=== PATIENT | female | born 1935 | race Caucasian/White ===

== ENCOUNTER 2022-10-24 21:23 | Inpatient (IN) | payer OTHER ==
[~2022-10-24] VITALS: Ht 154.9 cm; Wt 43.1 kg
[~2022-10-24 21:23] MED LIST: ALBU0.099 IH; ASPI81EC98 PO; BENA40TA97 PO; HYDR25TA32 PO; METO-744 PO; NIFE60TE PO; [UNRECOGNIZED DRUG - CODE] PO
[2022-10-24 21:30] VITALS: BP 165/111
[2022-10-24] MEDS ORDERED: NACL 0.9% 1,000 ML IV ONE (21:40)
--- NOTE | 2022-10-24 21:44 | NUR ---
PT BIBA WITH C/O HYPERTENSION AND BACK PAIN. PT ARRIVED FROM HOME. TACHY AFIB RVR NOTED. PT STATES UPPER 6/10 BACK PAIN, PT DENIES CP, SOB, FEVER, OR CHILLS. PT IS AAOX4, NAD, VSS, BREATHING EVEN AND UNLABORED. FAMILY AT BEDSIDE.
[2022-10-24] MEDS ORDERED: METOPROLOL 5 MG/5 ML VIAL IVP ONE (21:45)
--- NOTE | 2022-10-24 22:06 | NUR ---
PT SATING AT 91% RA. PLACED ON 2L O2 NC NOW SATING AT 97%, PT TOLERATING WELL. PT DENIES SOB. NADN. WILL CONTINUE TO MONITOR.
[2022-10-24 22:16] LABS: BASOPHILS % (AUTO) 0.5 % (0.0-2.0); EOSINOPHILS % (AUTO) 0.1 % (0.0-4.0); HEMATOCRIT 37.5 % (36-48); HEMOGLOBIN 12.7 g/dL (12.0-16.0); LYMPHOCYTES # (AUTO) 1.6 K/uL (2.5-16.5); LYMPHOCYTES % (AUTO) 16.1 % (20.5-51.1); MEAN CORPUSCULAR HEMOGLOBIN 32 pg (27-31); MEAN CORPUSCULAR HGB CONC 34 g/dL (33-37); MONOCYTES # (AUTO) 0.8 K/uL (0.8-1.0); MONOCYTES % (AUTO) 7.6 % (1.7-9.3); NEUTROPHILS # (AUTO) 7.4 K/uL (1.8-7.7); NEUTROPHILS % (AUTO) 75.7 % (42.2-75.2); PLATELET COUNT (AUTO) 209 K/uL (140-450); RED BLOOD CELL COUNT(AUTO) 4.04 MIL/uL (4.20-5.40); RED CELL DISTRIBUTION WIDTH 14.3 % (11.6-13.7); WHITE BLOOD COUNT (AUTO) 9.8 K/uL (4.8-10.8)
[2022-10-24 22:45] LABS: ALBUMIN 2.8 g/dL (3.4-5.0); ASPARTATE AMINOTRANSFERASE 111 U/L (15-37); CARBON DIOXIDE 21.1 mmol/L (21-32); CHLORIDE 95 mmol/L (98-107); CREATININE 0.7 mg/dL (0.6-1.3); GLUCOSE 213 mg/dL (74-106); POTASSIUM 4.1 mmol/L (3.5-5.1); SODIUM SERUM 129 mmol/L (136-145); TOTAL BILIRUBIN 0.8 mg/dL (0.0-1.0); UREA NITROGEN, BLOOD 14 mg/dL (7-18)
[2022-10-24] MEDS ORDERED: METOPROLOL 25 MG TAB PO ONE (22:55)
[2022-10-24] MEDS ORDERED: guaiFENesin DM 200/20 MG-10 ML 10 ML UDC PO PRN (23:40)
[2022-10-24] MEDS ORDERED: ONDANSETRON 4 MG/2 ML VIAL IM/IVP PRN (23:40)
[2022-10-24] MEDS ORDERED: ACETAMINOPHEN 325 MG TAB PO PRN (23:40)
[2022-10-24] MEDS ORDERED: POTASSIUM CHLORIDE 10 MEQ TABER PO PRN (23:40)
[2022-10-24] MEDS ORDERED: DOCUSATE SODIUM 100 MG GELCAP PO PRN (23:40)
[2022-10-25] MEDS ORDERED: cefTRIAXone 1,000 MG VIAL ONE (00:04)
[2022-10-25 02:51] LABS: APPEARANCE,URINE SL CLOUDY (CLEAR); BILIRUBIN,URINE NEGATIVE (NEGATIVE); BLOOD, URINE NEGATIVE (NEGATIVE); COLOR,URINE YELLOW (YELLOW); LEUKOCYTE ESTERASE ,URINE TRACE (NEGATIVE); NITRITE, URINE POSITIVE (NEGATIVE); UGLUCOSE NEGATIVE (NEGATIVE)
[2022-10-25 03:01] LABS: RBC,URINE 0-5 /HPF (0-5); YEAST,URINE None Seen /HPF (None Seen)
--- NOTE | 2022-10-25 03:16 | NUR ---
PT REPORT GIVEN TO NICOLASA MORALEZ. ALL CARE ENDORSED AND QUESTIONS ANSWERED.
[2022-10-25 03:58] VITALS: BP 140/88
[2022-10-25 05:20] LABS: HEMATOCRIT 39.4 % (36-48); HEMOGLOBIN 13.5 g/dL (12.0-16.0); MEAN CORPUSCULAR HEMOGLOBIN 32 pg (27-31); MEAN CORPUSCULAR HGB CONC 34 g/dL (33-37); MEAN CORPUSCULAR VOLUME 92.9 fL (80-94); PLATELET COUNT (AUTO) 186 K/uL (140-450); RED BLOOD CELL COUNT(AUTO) 4.24 MIL/uL (4.20-5.40); RED CELL DISTRIBUTION WIDTH 14.3 % (11.6-13.7); WHITE BLOOD COUNT (AUTO) 8.2 K/uL (4.8-10.8)
[2022-10-25 05:31] VITALS: BP 163/120
[2022-10-25 05:36] LABS: ANION GAP 12.8 (8-16); CARBON DIOXIDE 23.2 mmol/L (21-32); CHLORIDE 99 mmol/L (98-107); CREATININE 0.6 mg/dL (0.6-1.3); GLUCOSE 131 mg/dL (74-106); SODIUM SERUM 131 mmol/L (136-145); UREA NITROGEN, BLOOD 11 mg/dL (7-18)
[2022-10-25 05:37] LABS: MAGNESIUM 1.7 mg/dL (1.8-2.4); PHOSPHORUS 2.1 mg/dL (2.5-4.9)
[2022-10-25] MEDS ORDERED: hydrALAZINE 20 MG/ML VIAL IVP PRN (05:45)
[2022-10-25] MEDS: HYDROcodone/APAP 7.5/325 MG 1 TAB PO PRN (05:58)
--- NOTE | 2022-10-25 06:23 | NUR ---
0316- report received from ER nurse Catracho RN on this pt
--- NOTE | 2022-10-25 06:24 | NUR ---
0324- received from ER per maria eugenia , on uncontrolledafin rate of 112 and BP- 124/60 . awake , alert , and oriented times 3. on room air w/o resp distress. Made pt. comfortable in bed and connected to monitors
--- NOTE | 2022-10-25 06:30 | NUR ---
0400-. pt. voided per bedpan
--- NOTE | 2022-10-25 06:31 | NUR ---
0532a- pt HR was upto 143 and BPS>160 and [id number] calledDr Ambati regarding changed in HR aand high BP andordered togive something for back pain first and only start Cardizem drip if its above 140.
[2022-10-25 06:35] LABS: BASOPHILS % (MANUAL) 0 % (0-2); EOSINOPHILS % (MANUAL) 0 % (0-4); LYMPHOCYTES % (MANUAL) 18 % (20-46); MONOCYTES % (MANUAL) 7 % (5-12)
--- NOTE | 2022-10-25 06:35 | NUR ---
0600-photos taken on wounds and bruises
--- NOTE | 2022-10-25 06:53 | NUR ---
0630amCardizem drip was not started because hr is bet 130 to 133
--- NOTE | 2022-10-25 07:15 | NUR ---
RECEIVED PATIENT FROM STORAGE GARAGE MANAGER REGISTRY NURSE NICOLASA MORALEZ. PATIENT IS ABLE TO FOLLOW SIMPLE COMMANDS. PERRL NOTED. SPO2 SATURATION AT 93%. A-FIB ON MONITOR. ABDOMEN IS SOFT WITH ALL ABDOMINAL QUADRANTS ACTIVE. PATIENT CURRENTLY NPO WITH EXCEPTION OF MEDICATION. PATIENT HAS RIGHT FOREARM 20G IV. NO SKIN BREAKDOWN NOTED . STANDARD PRECAUTION WITH HOB 30 DEGREE FOR ASPIRATION PRECAUTION, BED WHEELS LOCKED AND IN LOWEST POSITION.
[2022-10-25] MEDS ORDERED: DILTIAZEM 125 MG/25 ML VIAL IV ONE (07:31)
[2022-10-25] MEDS: DILTIAZEM 125 MG in DEXTROSE 5% 100 ML IV SCH ×2 (07:53→18:27)
[2022-10-25 08:00] VITALS: BP 150/74
[2022-10-25] MEDS ORDERED: MAGNESIUM OXIDE 400 MG TAB PO PRN (08:45)
[2022-10-25] MEDS ORDERED: SODIUM PHOS / POTASSIUM PHOS 1 PKT PDR PO PRN (08:45)
[2022-10-25] MEDS ORDERED: FUROSEMIDE 20 MG/2 ML VIAL IVP ONE (08:50)
--- NOTE | 2022-10-25 09:00 | NUR ---
DR FELDER ROUNDED AT PATIENT BEDSIDE. NEW ORDERS RECEIVED.
[2022-10-25] MEDS: ECOTRIN 81 MG TABEC PO SCH (09:01)
[2022-10-25] MEDS: hydroCHLOROthiazide 25 MG TAB PO SCH (09:01)
[2022-10-25] MEDS: METOPROLOL SUCCINATE 50 MG TABER PO SCH (09:02)
[2022-10-25] MEDS: NIFEdipine 30 MG TABER PO SCH (09:02)
[2022-10-25] MEDS: PANTOPRAZOLE 40 MG TABEC PO SCH (09:03)
[2022-10-25] MEDS: APIXABAN 2.5 MG TAB PO SCH ×2 (09:03→20:13)
[2022-10-25] MEDS ORDERED: ALBUTEROL HFA MDI 90 MCG/ACTUATION 8 GM INH PRN (09:05)
[2022-10-25] MEDS: FUROSEMIDE 20 MG/2 ML VIAL IVP SCH (09:08)
[2022-10-25] MEDS ORDERED: ALBUTEROL 0.083% 2.5 MG/3 ML NEBU INH PRN (09:10)
[2022-10-25 12:00] VITALS: BP 139/99
--- NOTE | 2022-10-25 15:21 | NUR ---
P.T. NOTES P.T. EVAL COMPLETED; REFER TO EVAL FOR DETAILS.
[2022-10-25 16:00] VITALS: BP 105/66
--- NOTE | 2022-10-25 19:28 | NUR ---
ENDORSED PATIENT TO SCRAPER LOADER OPERATOR NURSE NICOLASA LOVE. FOR CONTINUITY OF CARE.
--- NOTE | 2022-10-25 19:30 | NUR ---
RECEIVED REPORT FROM [facility] NURSEANABELLE,RN. RECEIVED PT ON SEMI-SANTANA'S POSITION WITH SIDE RAILS RAISED UP FOR SAFETY. PT IS AWAKE AND ORIENTED X4. ON ROOM AIR WITH SPO2 AT 95%. SINUS BRADYCARDIA NOTED ON ENTERPRISE SYSTEMS ARCHITECT. WITH IV SITE OVER RIGHT FOREARM GAUGE 20 WITH CARDIZEM FLOWING AT 10 MG/HR - FLOWING WELL, INTACT. ON CARDIAC DIET. WITH BRUISE OVER CHEST AREA AND AREAS OF NON-INTACT SKIN (SEE WOUND ASSESSMENT). SAFETY PRECAUTIONS IN PLACE AND MAINTAINED. WILL MONITOR PT CLOSELY. Addendum: 10/26/22 at 0036 by ALEJANDRO GONZALES RN RECEIVED REPORT FROM [facility] NURSEANABELLE,RN. RECEIVED PT ON SEMI-SANTANA'S POSITION WITH SIDE RAILS RAISED UP FOR SAFETY. PT IS AWAKE AND ORIENTED X4. ON ROOM AIR WITH SPO2 AT 95%. ATRIAL FIBRILLATION NOTED ON ENTERPRISE SYSTEMS ARCHITECT- CONTROLLED. WITH IV SITE OVER RIGHT FOREARM GAUGE 20 WITH CARDIZEM FLOWING AT 10 MG/HR - FLOWING WELL, INTACT. ON CARDIAC DIET. WITH BRUISE OVER CHEST AREA AND AREAS OF NON-INTACT SKIN (SEE WOUND ASSESSMENT). SAFETY PRECAUTIONS IN PLACE AND MAINTAINED. WILL MONITOR PT CLOSELY.
[2022-10-25 20:00] VITALS: BP 90/45
[2022-10-25] MEDS: ZOLPIDEM 5 MG TAB PO PRN (23:35)
[2022-10-26] VITALS (7 sets, daily range): BP systolic 85–110; BP diastolic 49–86
[2022-10-26 05:54] LABS: BASOPHILS % (AUTO) 0.3 % (0.0-2.0); EOSINOPHILS % (AUTO) 0.2 % (0.0-4.0); HEMATOCRIT 37.4 % (36-48); HEMOGLOBIN 12.6 g/dL (12.0-16.0); LYMPHOCYTES # (AUTO) 1.4 K/uL (2.5-16.5); LYMPHOCYTES % (AUTO) 16.4 % (20.5-51.1); MEAN CORPUSCULAR HEMOGLOBIN 31 pg (27-31); MEAN CORPUSCULAR HGB CONC 34 g/dL (33-37); MEAN CORPUSCULAR VOLUME 92.3 fL (80-94); MONOCYTES # (AUTO) 0.9 K/uL (0.8-1.0); MONOCYTES % (AUTO) 10.3 % (1.7-9.3); NEUTROPHILS % (AUTO) 72.8 % (42.2-75.2); PLATELET COUNT (AUTO) 213 K/uL (140-450); RED BLOOD CELL COUNT(AUTO) 4.05 MIL/uL (4.20-5.40); WHITE BLOOD COUNT (AUTO) 8.3 K/uL (4.8-10.8)
[2022-10-26 06:19] LABS: ANION GAP 12.9 (8-16); CARBON DIOXIDE 24.3 mmol/L (21-32); CHLORIDE 98 mmol/L (98-107); CREATININE 0.9 mg/dL (0.6-1.3); GLUCOSE 98 mg/dL (74-106); POTASSIUM 4.2 mmol/L (3.5-5.1); SODIUM SERUM 131 mmol/L (136-145); UREA NITROGEN, BLOOD 18 mg/dL (7-18)
[2022-10-26 06:39] LABS: PHOSPHORUS 2.4 mg/dL (2.5-4.9)
--- NOTE | 2022-10-26 07:10 | NUR ---
REPORT GIVEN TO DAYSRIFT NURSE, NICOLASA AHN. ALL QUESTIONS ANSWERED.
--- NOTE | 2022-10-26 07:15 | NUR ---
RECEIVED PATIENT FROM TREATING ENGINEER NURSE NICOLASA LOVE. PATIENT IS ABLE TO FOLLOW SIMPLE COMMANDS. PERRL NOTED. SPO2 SATURATION AT 93%. A-FIB ON MONITOR. ABDOMEN IS SOFT WITH ALL ABDOMINAL QUADRANTS ACTIVE. PATIENT CURRENTLY ON CARDIAC DIET TOLERATED. PATIENT HAS RIGHT FOREARM 20G IV. STANDARD PRECAUTION WITH HOB 30 DEGREE FOR ASPIRATION PRECAUTION, BED WHEELS LOCKED AND IN LOWEST POSITION.
--- NOTE | 2022-10-26 09:01 | NUR ---
PATIENT HAS BEEN SCREENED AND CATEGORIZED HIGH NUTRITION RISK. PATIENT WILL BE SEEN WITHIN 1-2 DAYS OF ADMISSION. 10/26/[address]
[2022-10-26] MEDS: hydroCHLOROthiazide 25 MG TAB PO SCH (09:02)
[2022-10-26] MEDS: METOPROLOL SUCCINATE 50 MG TABER PO SCH (09:02)
[2022-10-26] MEDS: NIFEdipine 30 MG TABER PO SCH (09:02)
[2022-10-26] MEDS: APIXABAN 2.5 MG TAB PO SCH ×2 (09:03→20:46)
[2022-10-26] MEDS: ECOTRIN 81 MG TABEC PO SCH (09:03)
[2022-10-26] MEDS: PANTOPRAZOLE 40 MG TABEC PO SCH (09:03)
[2022-10-26] MEDS: lisinopriL 10 MG TAB PO SCH (09:04)
[2022-10-26] MEDS: FUROSEMIDE 20 MG/2 ML VIAL IVP SCH (09:05)
--- NOTE | 2022-10-26 10:43 | NUR ---
10/26/22 RD INITIAL ASSESSMENT COMPLETED PLEASE REFER TO NUTRITION ASSESSMENT UNDER CARE ACTIVITY FOR ESTIMATED NUTRITIONAL NEEDS. 1. RECOMMEND REGULAR DIET WITH ENSURE BID FOR NUTRITION SUPPORT -WILL PROVIDE ADDITIONAL 700KCAL AND 40G PROTEIN DAILY 2. MONITOR NUTRITION-RELATED LAB VALUES 3. RD TO FOLLOW-UP 7 DAYS, LOW RISK ALEX [address]
--- NOTE | 2022-10-26 15:48 | NUR ---
Received call from Dr. Honeycutt regarding pt.'s heart rate with A-Fib with RVR 125-130. He ordered EKG stat. RT called and they will come now for EKG. Pt. with no acute distress. NO SOB, pt.'s family at bedside. Will cont to monitor closely.
--- NOTE | 2022-10-26 15:58 | NUR ---
Dr. Honeycutt called telephone ordered to give Cardizem 10 mg IVP. If patient has increased heart rate start patient on Cardizem drip. If patient feels chest pain draw stat troponin levels. patient with no acute distress, no SOB. will continue to monitor patient.
--- NOTE | 2022-10-26 15:58 | NUR ---
status update: text messaged Dr. Honeycutt regarding patients increasing heart rate between 120-125.
--- NOTE | 2022-10-26 16:01 | NUR ---
status update: text messaged Dr. Honeycutt the patients EKG results. MD is aware of the situation.
[2022-10-26] MEDS ORDERED: DILTIAZEM 25 MG/5 ML VIAL IVP ONE ×2 (16:03→16:14)
--- NOTE | 2022-10-26 16:12 | NUR ---
Administered Cardizem 10 mg IVP. patients vital signs 110/86, HR 135, RR 20, SpO2 94%. Family is at bedside. pt with no acute distress, no SOB, will continue to monitor patient closely.
--- NOTE | 2022-10-26 16:30 | NUR ---
Dr. ALDANA contacted for cardiology consult for A-FIB RVR. Message sent.
--- NOTE | 2022-10-26 17:06 | NUR ---
status update: Dr. Honeycutt called with new orders. per MD wants metoprolol succinate 25 mg to get discontinued. start metoprolol 25 mg BID. first dose give at 2100.
--- NOTE | 2022-10-26 18:20 | NUR ---
discontinued pt right forearm 20G due to infiltration. Started 20G IV on right upper arm. Pt tolerated IV insertion. Addendum: 10/26/22 at 1854 by MANJEET NEWTON RN right antecubital
--- NOTE | 2022-10-26 18:55 | NUR ---
Pt.'s right forearm IV site with infiltrated with skin swollen and redness at site. Pt. denies any pain. Positive radial pulses. Skin warm to touch. IV site d/c and pressure dressing applied. New IV site started to Right A/C X 1 attempt with no acute distress. Pt. tolerated with no diff. Pt. with no acute distress. Will cont. to monitor.
--- NOTE | 2022-10-26 19:20 | NUR ---
endorsed report to oyster fisherman charge nurse NICOLASA Kent. for continuity of care. patient is left AOx3, stable with no distress noted.
[2022-10-26] MEDS: ZOLPIDEM 5 MG TAB PO PRN (20:42)
[2022-10-26] MEDS: METOPROLOL 25 MG TAB PO SCH (20:42)
--- NOTE | 2022-10-26 22:54 | NUR ---
1944-RECEIVED ENDORSEMENT FROM MARILU CACERES [facility] ICU NURSE
--- NOTE | 2022-10-26 22:55 | NUR ---
1999-ON AFIB AT 113/MIN . 02 A T3L/ NC, O2 SAT 95 % . NO RESP. DISTRESS
--- NOTE | 2022-10-26 23:00 | NUR ---
2100- AMBIEN 5 MG PO GIVEN FOR SLEEP PRN
--- NOTE | 2022-10-26 23:01 | NUR ---
2200- ASLEEP. SIDERAILS UP TIMESX3
[2022-10-27] VITALS: BP 102/74
--- NOTE | 2022-10-27 01:41 | NUR ---
0000-NO EPISODE OF AGITATION AND INCREASE HEAR RATE> 140
[2022-10-27] MEDS: HYDROcodone/APAP 7.5/325 MG 1 TAB PO PRN (02:00)
--- NOTE | 2022-10-27 03:45 | NUR ---
0200- NORCO I TAB GIVEN PO PRN FOR C/O BACK PAIN
--- NOTE | 2022-10-27 03:47 | NUR ---
0200- NORCO 7.5/ 325 MG PO WAS GIVEN FOR BACK PAIN
--- NOTE | 2022-10-27 03:59 | NUR ---
PT IS COMFORTABLY SLEEPING.
[2022-10-27 04:00] VITALS: BP 96/48
--- NOTE | 2022-10-27 04:20 | NUR ---
0400- REMAINS ON AFIB
--- NOTE | 2022-10-27 05:11 | NUR ---
VOIDED PER BEDPAN WITH CLOUDY URINE IN MOD AMT, PARTIAL BED BATH DONE
--- NOTE | 2022-10-27 07:16 | NUR ---
ENDORSED PT TO DAYSHIFT NURSES EMIR RN AND TAMARA RN FOR CONTINUITY OF CARE.
--- NOTE | 2022-10-27 07:30 | NUR ---
Received reposrt from John BALDWIN patient is diagnosed for AFIB WITH RVR pt is alert and oriented x 4 verbally responsive able to move all ext without difficulty NO C/O OF PAIN NO SOB NO CHEST PAIN V/S 98.3 TEMP HR 120S-130S BP 117/80 RESPIRATION 19 O2 SAT ON 2 LPM VIA NC 95O2 SAT PT HAS 2IGHT AC iv ACCESS SAFETY PRECAUTION APPLIED AND CONITUE MONITORING
[2022-10-27 08:00] VITALS: BP 117/80
--- NOTE | 2022-10-27 08:08 | NUR ---
PT. WITH LOW SIM SCALE AT MODERATE TO HIGH RISK, CONTINUE TO FOLLOW PRESSURE INJURY PREVENTION INTERVENTIONS. -POSITIONING: TURN AND REPOSITION PATIENT Q 2H OR SOONER USE PILLOWS TO KEEP BONY PROMINENCES FROM DIRECT CONTACT WITH SURFACES USE REPOSITIONING WEDGES TO PROVIDE 30-DEGREE ANGLE FOR SIDE LYING POSITIONS OFFLOADING OR FOAM DRESSING TO ALL TUBING TO PREVENT MEDICAL DEVICES RELATED PRESSURE INJURY -RE-EVALUATING AND MANAGING INCONTINENCE MONITOR SKIN CONDITION DURING POSITION CHANGE DO NOT MASSAGE REDNESS, BONY PROMINENCES FREQUENT JAE-CARE AND PROVIDE BARRIER CREAMS PRN IF SOILING MOISTURE CONTROL BY OFFER BED PEREZ/URINAL /ABSORBENT PAD TO WICK AND HOLD MOISTURE KEEP SKIN DRY AND PROTECT FROM FRICTION -MANAGE FRICTION/SHEAR/MOBILITY KEEP HOB AT THE LOWEST LEVEL OF ELEVATION NO MORE THAN 30 DEGREE UNLESS OTHERWISE CONTRAINDICATED USE LIFT SHEET OR TRANSFER DEVICE TO MOVE PATIENT AND PREVENT LATERAL SHEER. PROTECT HEELS, ELBOWS BONY PROMINENCES WITH SKIN BERRIES OR FOAM DRESSING IF EXPOSED TO FRICTION OFFLOAD BILATERAL HEELS BY PLACING PILLOWS UNDER CALVES AT ALL TIMES, UNLESS OTHERWISE CONTRAINDICATED -PRESSURE REDISTRIBUTION SURFACE THERAPY DANII ISOFLEX MATTRESS -NUTRITION: PLEASE FOLLOW RD RECOMMENDATIONS AND OFFER NUTRITION SUPPLEMENTS IF ORDERED. PLEASE CONTACT WOUND CARE NURSE FOR ANY QUESTION AND CHANGE OF WOUND CONDITION.
[2022-10-27] MEDS: ECOTRIN 81 MG TABEC PO SCH (08:30)
[2022-10-27] MEDS: METOPROLOL 25 MG TAB PO SCH ×2 (08:30→20:31)
[2022-10-27] MEDS: hydroCHLOROthiazide 25 MG TAB PO SCH (08:30)
[2022-10-27] MEDS: PANTOPRAZOLE 40 MG TABEC PO SCH (08:31)
[2022-10-27] MEDS: lisinopriL 10 MG TAB PO SCH (08:31)
[2022-10-27] MEDS: APIXABAN 2.5 MG TAB PO SCH ×2 (08:32→20:35)
[2022-10-27 09:23] LABS: BASOPHILS % (AUTO) 0.5 % (0.0-2.0); EOSINOPHILS % (AUTO) 0.7 % (0.0-4.0); HEMATOCRIT 38.7 % (36-48); HEMOGLOBIN 13.1 g/dL (12.0-16.0); LYMPHOCYTES # (AUTO) 0.7 K/uL (2.5-16.5); LYMPHOCYTES % (AUTO) 11.6 % (20.5-51.1); MEAN CORPUSCULAR HEMOGLOBIN 31 pg (27-31); MEAN CORPUSCULAR HGB CONC 34 g/dL (33-37); MEAN CORPUSCULAR VOLUME 92.2 fL (80-94); MONOCYTES # (AUTO) 0.5 K/uL (0.8-1.0); NEUTROPHILS # (AUTO) 4.5 K/uL (1.8-7.7); NEUTROPHILS % (AUTO) 79.2 % (42.2-75.2); PLATELET COUNT (AUTO) 233 K/uL (140-450); RED BLOOD CELL COUNT(AUTO) 4.19 MIL/uL (4.20-5.40); WHITE BLOOD COUNT (AUTO) 5.6 K/uL (4.8-10.8)
[2022-10-27 09:54] LABS: ANION GAP 10.2 (8-16); CARBON DIOXIDE 26.6 mmol/L (21-32); CHLORIDE 100 mmol/L (98-107); CREATININE 0.8 mg/dL (0.6-1.3); GLUCOSE 168 mg/dL (74-106); SODIUM SERUM 134 mmol/L (136-145); UREA NITROGEN, BLOOD 20 mg/dL (7-18)
[2022-10-27 09:57] LABS: POTASSIUM 2.8 mmol/L (3.5-5.1)
[2022-10-27 09:59] LABS: PHOSPHORUS 2.1 mg/dL (2.5-4.9)
[2022-10-27 12:00] VITALS: BP 119/80
--- NOTE | 2022-10-27 12:26 | NUR ---
pt has no c/o rajesh and no sob pt needs met, family at bedside meds expalined and questions answered. UZ of the heart was done. K=2.8 resul today with new order placed awaiting pharmacy to deliver.
--- NOTE | 2022-10-27 13:22 | NUR ---
PT. IS ABLE TO TURN AND REPOSITION, FOLLOW DIRECTIONS. RIGHT LOWER LEG ANTERIOR ASPECT, MATURATION PHASE WOUND 2X1X0.2CM WOUND BED, PINK AND DRY, NO ODOR, JAE-WOUND SKIN DRY AND INTACT. PAIN 0/10. BILATERAL HEELS BLANCHABLE REDNESS, HEEL PROTECTORS IN PLACE, WITH PILLOW OFFLOADING. POC DISCUSSED WITH PT. DAUGHTER WHO IS AT BEDSIDE AND PRIMARY RN EMIR. RECOMMENDATIONS: -RLE WOUND APPLY ALGINATE DRESSING AND COVER WITH DRY DRESSING Q3D AND PRN IF SOILING -APPLY HYDRAGUARD TO LIMBS AND TRUNK OF BODY AND HEELS BID AND CARD MOUNTER
[2022-10-27] MEDS ORDERED: POTASSIUM CHLORIDE 40 MEQ, LIDOCAINE 1% 25 MG in NACL 0.9% 250 ML IV SCH (13:30)
--- NOTE | 2022-10-27 14:25 | NUR ---
DC PLANNING AN 87 Y.O.BRIT[place] VIRGIN ISLANDER SPEAKING PATIENT ADMITTED TO ICU FOR MALAISE AND HIGH B/P. SOB AND PALPITATION 2-3 HOURS CHIEF DEPUTY.HX OF A.FIB,ASTHMA AND HIV.ON 2 L NC.ON A.FIB WITH RVR AND WAS STARTED ON CARDIZEM DRIP WHICH WAS OFF NOW AND ON CARDIZEM P.O.PATIENT IS AWAKE, ALERT BUT STILL ON A.FIB WITH HR IN THE 120S-130S.CARDIAC BLOOD ,URINE CX NO GROWTH.NO MRSA ISOLATED.ON CEFTRIAXONE.COVID NEGATIVE.DC PLAN-HOME WHEN PATIENT CONDITION IMPROVES AND PATIENT RESPONDS TO TX.CM TO FOLLOW.. Addendum: 10/27/22 at 1440 by YEHUDA WRIGHT LATE ENTRY- CORRECTION : CARDIAC CX DONE.WAITING FOR TO SEE PATIENT. NO SUCH THING CARDIAC BLOOD.IT'S A TYPO. Addendum: 10/29/22 at 1039 by JENNIFER SYED WENT TO BEDSIDE WITH CASH APPLICATIONS ANALYST KIKI #[id number] ON THE PHONE. WE SPOKE WITH PATIENT AND FAMILY MEMBER AT BEDSIDE REGARDING SNF. PATIENT WAND FAMILY ASKED IF THEY WERE ABLE TO GET CARE AT HOME. SPOKE ON THE DIFFERENCES BETWEEN HOME HEALTH AND A SNF. THEY DECIDED ON HOME HEALTH PT. RECEIVED ORDER FOR HOME HEALTH PT.FAXED ALL PAPERWORK TO [facility] FOR PT Addendum: 10/29/22 at 1332 by JENNIFER SYED CM PATIENT HAD A HOME HEALTH PRIOR TO COMING TO [facility] , ASKED FAMILY IF THEY WOULD LIKE TO CONTINUE WITH THE SAME AGENCY BUT FAMILY DECLINED STATING THE WERE NOT SATISFIED WITH THERE SERVICE AND WOULD LIKE TO PROCEED WITH A DIFFERENT HOME HEALTH AGENCY. GOT A CALL FROM [facility] WHO IS ACCEPTING PATIENT AND WILL BE CONTACTING FAMILY.
--- NOTE | 2022-10-27 14:47 | NUR ---
Automation Machine Operator INTERNAL CORROSION SPECIALIST met with pt., daughter Ksenia Smith, and Granddaughter, Ernestine Reynolds at bedside. Pt. speaks Mexican so Ernestine acted as interpretor for both pt. and pts.mayra. Pt. was alert and oriented and a couple of times answered INTERNAL CORROSION SPECIALIST's questions. Dtr. stated once pt. is stabilized, the goal is to get pt. back home where pt. reside and dtr. resided together in [place]. Dtr. was able to give all pertinent info so INTERNAL CORROSION SPECIALIST can complete a Discharge Planning Assessment. Please see in Intervention. Dtr. requested another granddaughter be added as a secondary emergency contact, Catherine Llamas, . INTERNAL CORROSION SPECIALIST will have this contact added. Pt. was in agreement with Dtr. once she is medically cleared she would like to return to her home. Pt. did not have any questions or concerns at this time. Dtr. stated there were no mental health issues. Addendum: 10/27/22 at 1605 by Isa Seals RN Automation Machine Operator It should be noted that Dtr. Mccormack shared pt.s PCP info. Ksenia confirmed that pts. PCP is an infectious disease doctorYou Infectious Disease [phone] Addendum: 10/27/22 at 1614 by Isa Seals RN Automation Machine Operator ALEJO was able to speak to pts. kevin who resides in [place], Evangelina Tidwell, who stated she does stay in frequent contact with pt./aunt. Evangelina continued to say, pt. was frantic due to the uknow re. her pain meds. Pt. wants to continue to have pain meds, morphine, [place] to manage her pain, but niece said she was sure there was pain, but maybe not as much as the pt. is stating. Bonifacio continued to say once she say pt. with a large bottle of Vicadin, "Like a [employer] bottle of Vitamins, that large" that pt. was using like candy. Kevin also mentioned that the facility, [facility] did not send over the medical directive. INTERNAL CORROSION SPECIALIST can look in the chart to see if there is one. If there is not one listed, as long as pt. is alert and oriented, a new one can be done and signed by Dr. DHILLON transfered the call so niece can speak with pt. Addendum: 10/29/22 at 1012 by Isa Seals RN WRONG PATIENT
[2022-10-27] MEDS ORDERED: ALGINATE ROPE MC SCH (15:00)
--- NOTE | 2022-10-27 15:04 | NUR ---
dR. Varghese CAM IN AND SEE PT FAMILY AT BEDSIDE TALKED WITH MD VERBALIZED UNDERSTANDING ALL QUESTIONS ANSWERED.
[2022-10-27] MEDS ORDERED: DIGOXIN 0.25 MG/ML AMP IV SCH ×2 (15:20→21:00)
[2022-10-27] MEDS ORDERED: MIDAZOLAM 2 MG/2 ML VIAL IV ONE (15:58)
[2022-10-27 16:00] VITALS: BP 138/75
--- NOTE | 2022-10-27 19:22 | NUR ---
RECEIVED REPORT FROM [facility] NURSEEMIRRN. ALL CARES ASSUMED. RECEIVED PT AWAKE AND ORIENTED X4. ON SEMI-SANTANA'S POSITION WITH SIDE RAILS RAISED UP. WITH O2 INHALATION AT 2LM NASAL CANNULA - SPO2 AT 95%. LUNGS CLEAR. AFIB STILL NOTED ON SPEEDBOAT OPERATOR. WITH RIGHT ANTECUBITAL IV ACCESS G20 - FLUSHED AND CAPPED - PATENT AND INTACT. SKIN NON-INTACT - WITH ANTERIOR CHEST BRUISE. RIGHT LEFT WOUND WITH ALGINATE DRESSING-DRY AND INTACT. WITH LEFT LOWER EXTREMITY SCAR. PT NOT IN DISTRESS, NO PAIN AND NO OTHER COMPLAINTS REPORTED. SAFETY PRECAUTIONS IN PLACE. WILL MONITOR PT.
--- NOTE | 2022-10-27 19:22 | NUR ---
ENDORSED PT TO [employer] REPAIR TECHNICIAN patient is diagnosed for AFIB WITH RVR pt is alert and oriented x 4 verbally responsive able to move all ext without difficulty NO C/O OF PAIN NO SOB NO CHEST PAIN V/S HR 120S-130S BP 133/80 RESPIRATION 19 O2 SAT ON 2 LPM VIA NC 95%O2 SAT PT HAS 2IGHT AC IV ACCESS SAFETY PRECAUTION APPLIED SKIN PROBLEM IS RIGHT LOWER EXTREMITY WOUND DRESSING CHNAGE DONE DATED.
--- NOTE | 2022-10-27 19:23 | NUR ---
0 patients lungs sound clear no hhntx needed at this time. patient is off o2 sats 95%. no sob noted at this time. pt is awake and alert
[2022-10-27 20:00] VITALS: BP 133/90
--- NOTE | 2022-10-27 20:35 | NUR ---
LANOXIN IVP GIVEN SLOWLY - WILL MONITOR HR CLOSELY.
[2022-10-27] MEDS: OFLOXACIN 0.3% OP 5 ML BTL RIGHT EYE SCH ×2 (20:59→23:48)
--- NOTE | 2022-10-27 20:59 | NUR ---
OFLOXACIN EYE DROPS STARTED AFTER VERIFYING WITH PHARMACIST.
--- NOTE | 2022-10-27 21:35 | NUR ---
LANOXIN MEDICATION RE-ASSESSMENT DOCUMENTED - BP: 143/85, HR:100.
--- NOTE | 2022-10-27 22:30 | NUR ---
PT IS COMPLAINING OF PEEING A LOT. PUREWICK INSERTED CONSENTED BY PT.
[2022-10-28] VITALS: BP 146/94
[2022-10-28] MEDS: HYDRAGUARD CREAM TP SCH ×2 (00:16→12:55)
[2022-10-28] MEDS: ZOLPIDEM 5 MG TAB PO PRN (00:16)
[2022-10-28] MEDS ORDERED: DIGOXIN 0.25 MG/ML AMP IV SCH (03:00)
[2022-10-28 04:00] VITALS: BP 155/103
[2022-10-28 04:58] LABS: BASOPHILS % (AUTO) 0.7 % (0.0-2.0); EOSINOPHILS # (AUTO) 0.1 K/uL (0-0.4); EOSINOPHILS % (AUTO) 1.1 % (0.0-4.0); HEMATOCRIT 46.2 % (36-48); HEMOGLOBIN 15.8 g/dL (12.0-16.0); LYMPHOCYTES % (AUTO) 17.4 % (20.5-51.1); MEAN CORPUSCULAR HEMOGLOBIN 32 pg (27-31); MEAN CORPUSCULAR HGB CONC 34 g/dL (33-37); MEAN CORPUSCULAR VOLUME 92.3 fL (80-94); MONOCYTES # (AUTO) 0.6 K/uL (0.8-1.0); MONOCYTES % (AUTO) 10.8 % (1.7-9.3); PLATELET COUNT (AUTO) 264 K/uL (140-450); RED BLOOD CELL COUNT(AUTO) 5.01 MIL/uL (4.20-5.40); RED CELL DISTRIBUTION WIDTH 14.1 % (11.6-13.7); WHITE BLOOD COUNT (AUTO) 5.7 K/uL (4.8-10.8)
[2022-10-28] MEDS: METOPROLOL 25 MG TAB PO SCH ×2 (05:08→12:55)
[2022-10-28] MEDS: OFLOXACIN 0.3% OP 5 ML BTL RIGHT EYE SCH ×3 (05:09→18:50)
[2022-10-28 05:23] LABS: ANION GAP 10.3 (8-16); CARBON DIOXIDE 28.8 mmol/L (21-32); CHLORIDE 101 mmol/L (98-107); CREATININE 0.7 mg/dL (0.6-1.3); GLUCOSE 104 mg/dL (74-106); POTASSIUM 4.1 mmol/L (3.5-5.1); SODIUM SERUM 136 mmol/L (136-145); UREA NITROGEN, BLOOD 14 mg/dL (7-18)
[2022-10-28 05:33] LABS: MAGNESIUM 1.8 mg/dL (1.8-2.4); PHOSPHORUS 2.3 mg/dL (2.5-4.9)
--- NOTE | 2022-10-28 06:56 | NUR ---
PT IS SLEEPING COMFORTABLY IN BED AND KEPT WARM WITH LAYERED BLANKETS. MAINTAINED ON O2 INHALATION FOR COMFORT. BP SLIGHTLY ELEVATED. STILL ON AFIB- CONTROLLED WITH HR-80-[address] ON CONTIUOUS SUCTION -1,750ML OF UO COLLECTED THE WHOLE SHIFT WITH 1 EPISODE OF BOWEL MOVEMENT. NO COMPLAINTS OF PAIN THE WHOLE SHIFT. SPONGE BATH GIVEN. NO DISTRESS NOTED. AFEBRILE.
--- NOTE | 2022-10-28 07:04 | NUR ---
REPORT GIVEN TO DAYSGAFT NURSE, NICOLASA AHN. ALL QUESTIONS ANSWERED.
--- NOTE | 2022-10-28 07:25 | NUR ---
Received report from shift leader nurse NICOLASA Lora. Upon assessment patient is only Lao speaking, able to follow simple commands in preferred language. PERRL noted. Upon auscultation no adventitious lung sounds noted, SpO2 95%. Atrial fibrillation on monitor patient is not experiencing any chest pain or SOB at the moment. Patient skin has medial chest bruise, left leg scar open to air, left heel pressure ulcer, right leg pressure ulcer with alginate dressing. Patients abdomen is soft with all abdominal quadrants active, purewick to suction. patient is on soft mechanical diet as tolerated. Patient has right AC 20G IV with no infiltration or redness noted. Standard precaution with HOB 30 degrees for aspiration precautions, bed wheels locked, and bed in lowest position for patient safety.
[2022-10-28 08:00] VITALS: BP 142/87
[2022-10-28] MEDS: SODIUM PHOS / POTASSIUM PHOS 1 PKT PDR PO SCH ×3 (09:41→18:50)
[2022-10-28] MEDS: APIXABAN 2.5 MG TAB PO SCH ×2 (09:41→21:18)
[2022-10-28] MEDS: PANTOPRAZOLE 40 MG TABEC PO SCH (09:42)
[2022-10-28 12:00] VITALS: BP 140/97
--- NOTE | 2022-10-28 12:26 | NUR ---
Physical Therapist Taisha performed ambulating exercises with patient. Patient walked 20 feet able to tolerate ambulation. Patient felt tired once she sat down back in bed SpO2 at 86%. Provided patient with 2L of oxygen, SpO2 increased to 96%. No acute distress or SOB noted.
--- NOTE | 2022-10-28 15:00 | NUR ---
Seen and examined by Dr Fung. No new orders received.
[2022-10-28 16:00] VITALS: BP 127/98
--- NOTE | 2022-10-28 17:43 | NUR ---
Notified Dr. Moctezuma regarding patient complaining of left rib pain due to her severe osteoporosis that was diagnosed by patients primary provider. Patient states she uses pain relief cream at home. ordered Voltaren Gel.
--- NOTE | 2022-10-28 18:10 | NUR ---
[place] Pharmacist called in regards to pharmacy not carrying Voltran Gel. Discussed with MD Moctezuma for alternative ointment. Dr. Moctezuma ordered Menthol Salycilate for left rib pain.
[2022-10-28] MEDS: MENTHOL/METHYL 10%-15% 114 GM TUBE TP PRN (18:51)
--- NOTE | 2022-10-28 19:05 | NUR ---
Endorsed report to night monitor nurse NICOLASA Bliss. to continue plan of care. Patient AOx3, left laying in bed asleep. no acute distress or SOB of breath noted.
--- NOTE | 2022-10-28 19:06 | NUR ---
TRANSFER OF CARE FROM DAY SHIFT; REPORT RECEIVED FROM NICOLASA BURROUGHS. PATIENT RECEIVED AWAKE, ALERT AND SITTING UP IN BED. FAMILY MEMBER (DTR - ADILENE) - IS AT BEDSIDE. PATIENT IS CURRENTLY BREATHING ON ROOM AIR. PATIENT HAS PUREWICK IN PLACE. HAS BILATERAL HEEL PROTECTORS, VITALS AT START OF SHIFT ARE FOLLOWS: TEMP = 97.8F, HR = 88, O2 SAT = 96%, RESP = 25, BP = 167/76. PATIENT CURRENTLY DENIES PAIN. WILL CONTINUE TO MONITOR PATIENT AND NOTIFY MD FOR ANY CHANGE IN CONDITION
[2022-10-28 20:00] VITALS: BP 167/76
--- NOTE | 2022-10-28 20:16 | NUR ---
DTR AT BEDSIDE, ALL QUESTIONS ANSWERED
--- NOTE | 2022-10-28 21:18 | NUR ---
PROVIDED PATIENT WITH WATER TO DRINK DURING MEDICATION ADMINISTRATION. PATIENT WAS ABLE TO SWALLOW MEDICATION WITHOUT DIFFICULTY
[2022-10-28] MEDS: METOPROLOL 50 MG TAB PO SCH (21:19)
--- NOTE | 2022-10-28 21:23 | NUR ---
PATIENT'S OTHER DTR (PAVEL) AT BEDSIDE
--- NOTE | 2022-10-28 21:59 | NUR ---
PATIENT SLEEPING, EASILY AROUSED.
[2022-10-29] VITALS: BP 151/99
--- NOTE | 2022-10-29 | NUR ---
PATIENT ASLEEP, EASILY AROUSED. PROVIDED PATIENT WITH WATER PER PATIENT REQUEST. WILL CONTINUE FREQUENT VISUAL CHECKS
[2022-10-29] MEDS: OFLOXACIN 0.3% OP 5 ML BTL RIGHT EYE SCH ×3 (00:43→11:22)
[2022-10-29] MEDS: HYDRAGUARD CREAM TP SCH (01:31)
--- NOTE | 2022-10-29 03:55 | NUR ---
PATIENT SLEEPING, EASILY AROUSED. PROVIDER WATER TO PATIENT PER REQUEST
[2022-10-29 04:00] VITALS: BP 149/108
[2022-10-29 05:25] LABS: BASOPHILS % (AUTO) 0.6 % (0.0-2.0); EOSINOPHILS % (AUTO) 0.6 % (0.0-4.0); HEMATOCRIT 45.5 % (36-48); HEMOGLOBIN 15.5 g/dL (12.0-16.0); LYMPHOCYTES % (AUTO) 16.3 % (20.5-51.1); MEAN CORPUSCULAR HEMOGLOBIN 31 pg (27-31); MEAN CORPUSCULAR HGB CONC 34 g/dL (33-37); MEAN CORPUSCULAR VOLUME 92.2 fL (80-94); MONOCYTES # (AUTO) 0.7 K/uL (0.8-1.0); MONOCYTES % (AUTO) 10.9 % (1.7-9.3); NEUTROPHILS # (AUTO) 4.3 K/uL (1.8-7.7); NEUTROPHILS % (AUTO) 71.6 % (42.2-75.2); PLATELET COUNT (AUTO) 261 K/uL (140-450); RED BLOOD CELL COUNT(AUTO) 4.94 MIL/uL (4.20-5.40); RED CELL DISTRIBUTION WIDTH 13.6 % (11.6-13.7)
[2022-10-29 06:19] LABS: ANION GAP 11.6 (8-16); CARBON DIOXIDE 26.3 mmol/L (21-32); CHLORIDE 102 mmol/L (98-107); CREATININE 0.7 mg/dL (0.6-1.3); GLUCOSE 100 mg/dL (74-106); PHOSPHORUS 3.1 mg/dL (2.5-4.9); POTASSIUM 3.9 mmol/L (3.5-5.1); SODIUM SERUM 136 mmol/L (136-145); UREA NITROGEN, BLOOD 18 mg/dL (7-18)
--- NOTE | 2022-10-29 07:30 | NUR ---
Received report from shift supervisor nurse NICOLASA Bliss. Upon auscultation no adventitious lung sounds noted, SpO2 95%. Atrial fibrillation on monitor. patient is not experiencing any chest pain or SOB at the moment when asked. Patient skin has medial chest bruise, left leg scar open to air, left heel pressure ulcer, right leg pressure ulcer with alginate dressing. Patients abdomen is soft with all abdominal quadrants active, purewick to suction. Heel protectors and bilateral SCD's on patient. Patient is on soft mechanical diet as tolerated. Patient has right AC 20G IV with no infiltration or redness noted. Standard precaution with HOB 30 degrees for aspiration precautions, bed wheels locked, and bed in lowest position for patient safety.
--- NOTE | 2022-10-29 07:31 | NUR ---
PHONE CALL FROM LAB, PATIENT WITH ELEVATED DIGOXIN LEVELS, MESSAGE SENT TO DR. ALDANA. DIGOXIN = 7.12 NEXT DOSE IS DUE AT 0900
--- NOTE | 2022-10-29 07:31 | NUR ---
TRANSFER OF CARE TO DAY SHIFT, REPORT ENDORSED TO NICOLASA BURROUGHS. ADVISED TO FOLLOW UP WITH DR. ALDANA REGARDING ELEVATED DIGOXIN LEVEL
[2022-10-29 08:00] VITALS: BP 162/85
--- NOTE | 2022-10-29 08:29 | NUR ---
status update: Dr. Fung hasn't called / text back in regards to patient's digoxin levels. Will continue to follow plan of care.
[2022-10-29] MEDS ORDERED: DIGOXIN 0.25 MG TAB PO SCH (09:00)
--- NOTE | 2022-10-29 09:30 | NUR ---
Dr. Mcgarry rounded at patients bedside no new orders received. Followed up with Dr. Mcgarry regarding patient's Digoxin Levels. Per MD Mcgarry " Hold Digoxin for one day and wait for electrical laboratory technician."
[2022-10-29] MEDS: PANTOPRAZOLE 40 MG TABEC PO SCH (09:46)
[2022-10-29] MEDS: SODIUM PHOS / POTASSIUM PHOS 1 PKT PDR PO SCH (09:46)
[2022-10-29] MEDS: METOPROLOL 50 MG TAB PO SCH (09:46)
[2022-10-29] MEDS: APIXABAN 2.5 MG TAB PO SCH (09:47)
[2022-10-29] MEDS ORDERED: BENA20TA PO (10:31)
[2022-10-29] MEDS ORDERED: DIGO0.122 PO (10:31)
[2022-10-29] MEDS ORDERED: METO25TA PO (10:31)
[2022-10-29] MEDS ORDERED: CEPH-588 PO (10:31)
[2022-10-29] MEDS ORDERED: APIX2.5 PO (10:31)
[2022-10-29] MEDS: MENTHOL/METHYL 10%-15% 114 GM TUBE TP PRN (11:19)
[2022-10-29 11:58] VITALS: BP 126/79
[2022-10-29 12:00] VITALS: BP 126/79
--- NOTE | 2022-10-29 13:10 | NUR ---
Patient discharged with v/s stable. Written and verbal after care instructions given and explained. Patient alert, oriented and verbalized understanding of instructions. Family also instructed Wheel Chair Assisted to car. All questions addressed prior to discharge. ID band removed. Patient advised to follow up with PMD. Rx list and instructions given. Patient educated on indication of medication including possible reaction and side effects. Opportunity to ask questions provided and answered.
--- NOTE | 2022-10-29 16:15 | NUR ---
CALLED DAUGHTER AND ASKED FOR PATIENTS PCP SHE INFORMED ME IT WAS DR ANGELA HAMM LOCATED AT [address] [facility] [id number] . AND SHE HAD ALREADY ALREADY ARRANGED THE CLOSEST APPOINTMENT DATE FOR 11/19/2022 AT 1500.
[2022-10-31] MEDS ORDERED: OFLOXACIN 0.3% OP 5 ML BTL RIGHT EYE SCH (18:00)
== END 2022-10-29 13:00 | disposition home or self-care (01) | DRG 871 ==
LOC: MED 21:23 → MTU 23:41 → MIC 10-25 03:38
PROVIDERS: ADMIT Student in an Organized Health Care Education/Training Program; ATTEND Student in an Organized Health Care Education/Training Program
DX: A41.9 Sepsis, unspecified organism (principal); E43 Unspecified severe protein-calorie malnutrition; I50.23 Acute on chronic systolic (congestive) heart failure; J96.00 Acute respiratory failure, unspecified whether with hypoxia or hypercapnia; J18.9 Pneumonia, unspecified organism; N39.0 Urinary tract infection, site not specified; I48.20 Chronic atrial fibrillation, unspecified; E87.1 Hypo-osmolality and hyponatremia; Z68.1 Body mass index [BMI] 19.9 or less, adult; J44.1 Chronic obstructive pulmonary disease with (acute) exacerbation; I11.0 Hypertensive heart disease with heart failure; E87.6 Hypokalemia; E83.39 Other disorders of phosphorus metabolism; Z20.822 Contact with and (suspected) exposure to COVID-19; Z79.01 Long term (current) use of anticoagulants; Z79.82 Long term (current) use of aspirin; Z79.899 Other long term (current) drug therapy
CPT/HCPCS: 36415; 71045; 80048; 80053; 80162; 81001; 83605; 83735; 83880; 84100; 84484; 85025; 87040; 87081; 87086; 93005; 96365; 96375; 97116; 97163-GP; 97530; 99291; J0360; J0696; J1160; J1940; J2001; J3480; J3490; J7030; J7060; Q0092